=== PATIENT | male | born 1955 | race African-American/Black ===

== ENCOUNTER 2021-09-06 20:34 | Emergency (ER) | payer MEDICAID ==
[~2021-09-06] VITALS: Ht 177.8 cm; Wt 71.0 kg
[2021-09-06 23:06] LABS: BASOPHILS % 0.4 % (0.0-2.0); EOSINOPHILS % 2.4 % (0.0-5.0); HEMATOCRIT. 37.7 % (42.0-52.0); HEMOGLOBIN. 12.8 g/dL (14.0-18.0); LYMPHOCYTES % 30.9 % (20.0-50.0); MEAN CORPUSCULAR HEMOGLOBIN 33.3 pg (28.0-32.0); MEAN PLATELET VOLUME 8.1 fl (7.4-10.4); NEUTROPHILS % 54.3 % (40.0-76.0); PLATELET 231 x1000/uL (130-400); RED BLOOD CELL COUNT 3.84 mill/uL (4.7-6.1); RED CELL DISTRIBUTION WIDTH 13.3 % (11.6-14.6)
[2021-09-06 23:13] LABS: CHLORIDE 108 mEq/L (98-107)
[2021-09-06 23:26] LABS: ETHANOL BLOOD < 10 mg/dL
[2021-09-07] MEDS ORDERED: VISCOUS LIDOCAINE 2% 15 ML UDC MM STA (00:13)
[2021-09-07] MEDS ORDERED: ONDANSETRON HCL 4MG/2ML INJ IV ONE (00:15)
[2021-09-07] MEDS ORDERED: PANTOPRAZOLE SODIUM 40 MG/VIAL IV ONE (00:15)
[2021-09-07 03:16] LABS: CLARITY URINE CLEAR (CLEAR); COLOR URINE YELLOW (YELLOW); KETONES URINE TRACE (NEGATIVE); LEUKOCYTE ESTERASE URINE NEGATIVE (NEGATIVE); NITRITE URINE NEGATIVE (NEGATIVE); OCCULT BLOOD URINE NEGATIVE (NEGATIVE); PH URINE 5.5 (4.5-8.0); PROTEIN URINE TRACE (NEGATIVE); SPECIFIC GRAVITY URINE 1.026 (1.005-1.030)
[2021-09-07 04:49] LABS: *AMPHETAMINES SCREEN URINE NEGATIVE (NEGATIVE); *BARBITURATES SCREEN URINE NEGATIVE (NEGATIVE); *BENZODIAZEPINES SCREEN URINE NEGATIVE (NEGATIVE); *COCAINE SCREEN URINE PRESUMTIVE POSITIVE (NEGATIVE); CANNABINOID URINE SCREEN NEGATIVE (NEGATIVE); METHADONE URINE SCREEN NEGATIVE (NEGATIVE); OPIATES URINE SCREEN NEGATIVE (NEGATIVE); PHENCYCLIDINE URINE SCREEN NEGATIVE (NEGATIVE)
[2021-09-07] MEDS ORDERED: ACET-2708 MT (05:00)
[2021-09-07] MEDS ORDERED: ACETAMINOPHEN 500MG TABLET PO ONE (05:30)
[2021-09-07 08:55] VITALS: BP 135/80
[2021-09-07] MEDS ORDERED: GADOTERATE MEGLUMINE 5 MMOL/10 ML VIAL IV ONE (11:46)
== END 2021-09-07 09:33 | disposition home or self-care (01) ==
LOC: ER 20:34
DX: R20.0 Anesthesia of skin (principal); R53.1 Weakness; Z88.6 Allergy status to analgesic agent
CPT/HCPCS: 36415; 70450; 72156; 72157; 72158; 80053; 80305; 80320; 81003; 82962; 85025; 96374; 96375; 99285; A9577; C9113; J2405; G0480

== ENCOUNTER 2021-11-15 07:41 | Inpatient (IN) | payer MEDICARE, MEDICAID ==
[~2021-11-15] VITALS: Ht 30.5 cm; Wt 90.7 kg
[2021-11-15] VITALS (62 sets, daily range): BP systolic 112–185; BP diastolic 48–93
[~2021-11-15 07:41] MED LIST: ACET-2708 MT
[2021-11-15] MEDS ORDERED: LACTATED RINGERS 1,000 ML IV SCH (08:40)
[2021-11-15] MEDS ORDERED: GENTAMICIN SULF 40MG/ML 2ML VIAL ONE (10:16)
[2021-11-15] MEDS ORDERED: THROMBIN (BOVINE) 5000 UNITS/VIAL TOP ONE (10:16)
[2021-11-15] MEDS ORDERED: LIDOCAINE HCL/EPINEPHRINE 1%-EPI 1:100,000 20 ML VIAL ONE (10:16)
[2021-11-15 10:19] LABS: PROTHROMBIN TIME 11.2 sec (9.6-11.0)
[2021-11-15] MEDS ORDERED: ONDANSETRON HCL 4MG/2ML INJ ONE (10:27)
[2021-11-15] MEDS ORDERED: DEXAMETHASONE 4MG/ML 1ML VIAL ONE (10:27)
[2021-11-15] MEDS ORDERED: SUCCINYLCHOLINE CHLORIDE 200MG/10ML IV ONE (10:27)
[2021-11-15] MEDS ORDERED: LIDOCAINE HCL 1% 20ML VIAL (Pyxis) INJ ONE (10:27)
[2021-11-15] MEDS ORDERED: PROPOFOL 10MG/ML 100ML 100 ML IV ONE (10:27)
[2021-11-15] MEDS ORDERED: ETOMIDATE 2MG/ML 10ML VIAL IV ONE (10:27)
[2021-11-15] MEDS ORDERED: GLYCOPYRROLATE 0.2 MG/ML 2ML VIAL ONE ×2 (10:28)
[2021-11-15] MEDS ORDERED: ROCURONIUM BROMIDE 10MG/ML VIAL 5ML IV ONE (10:28)
[2021-11-15] MEDS ORDERED: FENTANYL CITRATE/PF 50MCG/ML 2ML VIAL ONE (10:28)
[2021-11-15] MEDS ORDERED: MIDAZOLAM HCL 2 MG/2 ML VIAL ONE (10:29)
[2021-11-15 11:18] LABS: *AMPHETAMINES SCREEN URINE NEGATIVE (NEGATIVE); *BARBITURATES SCREEN URINE NEGATIVE (NEGATIVE); *BENZODIAZEPINES SCREEN URINE NEGATIVE (NEGATIVE); *COCAINE SCREEN URINE NEGATIVE (NEGATIVE); CANNABINOID URINE SCREEN NEGATIVE (NEGATIVE); METHADONE URINE SCREEN NEGATIVE (NEGATIVE); OPIATES URINE SCREEN NEGATIVE (NEGATIVE); PHENCYCLIDINE URINE SCREEN NEGATIVE (NEGATIVE)
[2021-11-15] MEDS ORDERED: GABA-532 PO (11:55)
[2021-11-15] MEDS ORDERED: PREG50CA PO (11:55)
[2021-11-15] MEDS ORDERED: NICARDIPINE 100 MG in SODIUM CHLORIDE 0.9% 60 ML IV PRN (13:30)
[2021-11-15] MEDS: MORPHINE SULFATE 2 MG/ML CPJ (NOT FOR IM USE) IV PRN ×2 (13:56→21:08)
[2021-11-15] MEDS ORDERED: CEFAZOLIN SODIUM 1000MG/VIAL IV SCH (14:00)
[2021-11-15] MEDS: NICARDIPINE 100 MG in SODIUM CHLORIDE 0.9% 60 ML IV PRN ×2 (14:00→22:06)
[2021-11-15] MEDS: DEXT 5%/LACTATED RINGERS 1,000 ML IV SCH ×2 (14:01→23:42)
[2021-11-15] MEDS ORDERED: NALOXONE HCL 0.4MG/ML VIAL IV PRN (14:15)
[2021-11-15] MEDS: CEFAZOLIN 1000MG PREMIX 50 ML IV SCH ×2 (14:37→21:07)
[2021-11-15] MEDS ORDERED: LABETALOL 5MG/ML SYR 20 MG/4 ML SYRINGE IV PRN (16:00)
[2021-11-15] MEDS: HYDRALAZINE 20MG/ML VIAL IV PRN (17:29)
[2021-11-15] MEDS ORDERED: HYDROMORPHONE HCL/PF 2MG/ML CPJ IV NR ×2 (17:30→18:00)
[2021-11-15] MEDS: LABETALOL HCL 100 MG in DEXT 5% WATER 80 ML IV PRN (18:07)
[2021-11-15] MEDS: DEXAMETHASONE 4MG/ML 1ML VIAL IV SCH ×2 (19:57→23:41)
[2021-11-16] VITALS (97 sets, daily range): BP systolic 103–155; BP diastolic 48–104
[2021-11-16] MEDS: MORPHINE SULFATE 2 MG/ML CPJ (NOT FOR IM USE) IV PRN ×6 (00:37→21:06)
[2021-11-16] MEDS: HYDRALAZINE 20MG/ML VIAL IV PRN (01:01)
[2021-11-16] MEDS: LABETALOL HCL 100 MG in DEXT 5% WATER 80 ML IV PRN (01:15)
[2021-11-16] MEDS: DEXAMETHASONE 4MG/ML 1ML VIAL IV SCH ×4 (05:34→23:01)
[2021-11-16] MEDS: CEFAZOLIN 1000MG PREMIX 50 ML IV SCH ×3 (05:34→21:05)
[2021-11-16] MEDS ORDERED: LIDOCAINE HCL/PF 1% 10 MG/ML 5ML VIAL ONE (08:15)
[2021-11-16] MEDS: DEXT 5%/LACTATED RINGERS 1,000 ML IV SCH ×2 (09:42→14:15)
[2021-11-16] MEDS ORDERED: IPRATROPIUM/ALBUTEROL 0.5-3(2.5)MG/3ML NEB HHN PRN (10:15)
[2021-11-16] MEDS ORDERED: AMLODIPINE 5MG TABLET PO SCH (11:45)
[2021-11-16 11:47] LABS: HEMATOCRIT. 36.8 % (42.0-52.0); HEMOGLOBIN. 12.7 g/dL (14.0-18.0); MEAN CORPUSCULAR HEMOGLOBIN 33.8 pg (28.0-32.0); MEAN CORPUSCULAR VOLUME 97.6 fL (80.0-94.0); MEAN PLATELET VOLUME 7.6 fl (7.4-10.4); PLATELET 200 x1000/uL (130-400); RED BLOOD CELL COUNT 3.77 mill/uL (4.7-6.1)
[2021-11-16 11:53] LABS: CHLORIDE 106 mEq/L (98-107)
[2021-11-16] MEDS: AMLODIPINE 10MG TABLET PO SCH (12:03)
[2021-11-16 12:56] LABS: PLATELET ESTIMATE NORMAL
[2021-11-16] MEDS: NICARDIPINE 100 MG in SODIUM CHLORIDE 0.9% 60 ML IV PRN (14:05)
[2021-11-16] MEDS: HYDROCODONE/ACETAMINOPHEN 5/325MG TABLET PO PRN ×2 (17:19→23:04)
[2021-11-17] VITALS (31 sets, daily range): BP systolic 108–135; BP diastolic 44–93
[2021-11-17 05:42] LABS: HEMATOCRIT. 35.8 % (42.0-52.0); HEMOGLOBIN. 12.4 g/dL (14.0-18.0); MEAN CORPUSCULAR HEMOGLOBIN 33.8 pg (28.0-32.0); MEAN CORPUSCULAR VOLUME 97.6 fL (80.0-94.0); PLATELET 199 x1000/uL (130-400); RED BLOOD CELL COUNT 3.67 mill/uL (4.7-6.1); RED CELL DISTRIBUTION WIDTH 13.3 % (11.6-14.6)
[2021-11-17] MEDS: DEXAMETHASONE 4MG/ML 1ML VIAL IV SCH ×3 (05:57→18:16)
[2021-11-17] MEDS: CEFAZOLIN 1000MG PREMIX 50 ML IV SCH (05:57)
[2021-11-17] MEDS: DEXT 5%/LACTATED RINGERS 1,000 ML IV SCH ×2 (05:58→18:43)
[2021-11-17 06:01] LABS: CHLORIDE 104 mEq/L (98-107)
[2021-11-17 06:28] LABS: HDL CHOLESTEROL 92 mg/dL (40-59); LDL CHOLESTEROL 142 mg/dL (5-100)
[2021-11-17] MEDS: AMLODIPINE 10MG TABLET PO SCH (09:09)
[2021-11-17] MEDS: HYDROCODONE/ACETAMINOPHEN 5/325MG TABLET PO PRN ×3 (09:10→22:49)
[2021-11-17 16:44] LABS: PLATELET ESTIMATE NORMAL
[2021-11-18] VITALS: BP 124/68
[2021-11-18] MEDS: DEXT 5%/LACTATED RINGERS 1,000 ML IV SCH ×3 (01:11→21:57)
[2021-11-18] MEDS: AMLODIPINE 10MG TABLET PO SCH (10:35)
[2021-11-18 12:00] VITALS: BP 148/73
[2021-11-18 12:29] LABS: HEMATOCRIT. 34.4 % (42.0-52.0); MEAN CORPUSCULAR HEMOGLOBIN 33.7 pg (28.0-32.0); MEAN CORPUSCULAR VOLUME 96.9 fL (80.0-94.0); MEAN PLATELET VOLUME 8.3 fl (7.4-10.4); PLATELET 218 x1000/uL (130-400); RED BLOOD CELL COUNT 3.55 mill/uL (4.7-6.1); RED CELL DISTRIBUTION WIDTH 13.1 % (11.6-14.6)
[2021-11-18 12:42] LABS: CHLORIDE 105 mEq/L (98-107)
[2021-11-18] MEDS: HYDROCODONE/ACETAMINOPHEN 5/325MG TABLET PO PRN ×2 (14:32→21:55)
[2021-11-18] MEDS: POLYETHYLENE GLYCOL 3350 (17GM) 1 DOSE PACK PO SCH (15:30)
[2021-11-18] MEDS ORDERED: HYDRALAZINE 10 MG in SODIUM CHLORIDE 0.9% 49.5 ML IV PRN (15:45)
[2021-11-18 16:00] VITALS: BP 121/78
[2021-11-18] MEDS: DOCUSATE SODIUM 100MG CAPSULE PO SCH (17:00)
[2021-11-18 20:00] VITALS: BP 112/75
[2021-11-18 22:16] LABS: PLATELET ESTIMATE NORMAL
[2021-11-19] VITALS (7 sets, daily range): BP systolic 114–134; BP diastolic 78–84
[2021-11-19] MEDS: HYDROCODONE/ACETAMINOPHEN 5/325MG TABLET PO PRN ×3 (05:00→20:04)
[2021-11-19] MEDS: AMLODIPINE 10MG TABLET PO SCH (08:28)
[2021-11-19] MEDS: DOCUSATE SODIUM 100MG CAPSULE PO SCH ×2 (08:28→17:56)
[2021-11-19] MEDS: DEXT 5%/LACTATED RINGERS 1,000 ML IV SCH ×2 (08:29→18:00)
[2021-11-19] MEDS: POLYETHYLENE GLYCOL 3350 (17GM) 1 DOSE PACK PO SCH (08:29)
[2021-11-19] MEDS: MORPHINE SULFATE 4 MG/ML CPJ (NOT FOR IM USE) IV PRN ×2 (08:51→15:45)
[2021-11-19] MEDS ORDERED: BISACODYL 10MG SUPP PR NR (14:00)
== END 2021-11-19 23:40 | DRG 471 ==
LOC: OR 07:41 → MICUNO 13:53 → 6EST 11-17 16:05
PROVIDERS: ADMIT Neurological Surgery; ATTEND Neurological Surgery
PROC: 0RG2071 Fusion of 2 or more Cervical Vertebral Joints with Autologous Tissue Substitute, Posterior Approach, Posterior Column, Open Approach (ICD-10-PCS; principal; 2021-11-15)
PROC: 00NW0ZZ Release Cervical Spinal Cord, Open Approach (ICD-10-PCS; 2021-11-15)
PROC: 4A11X4G Monitoring of Peripheral Nervous Electrical Activity, Intraoperative, External Approach (ICD-10-PCS; 2021-11-15)
PROC: 02HV33Z Insertion of Infusion Device into Superior Vena Cava, Percutaneous Approach (ICD-10-PCS; 2021-11-16)
PROC: B548ZZA Ultrasonography of Superior Vena Cava, Guidance (ICD-10-PCS; 2021-11-16)
DX: M48.02 Spinal stenosis, cervical region (principal); G82.50 Quadriplegia, unspecified; J96.01 Acute respiratory failure with hypoxia; G99.2 Myelopathy in diseases classified elsewhere; Z20.822 Contact with and (suspected) exposure to COVID-19; I16.0 Hypertensive urgency; I10 Essential (primary) hypertension; M54.12 Radiculopathy, cervical region; D64.9 Anemia, unspecified; G62.9 Polyneuropathy, unspecified; R73.9 Hyperglycemia, unspecified; R26.89 Other abnormalities of gait and mobility; F14.10 Cocaine abuse, uncomplicated; Z88.8 Allergy status to other drugs, medicaments and biological substances; Z87.11 Personal history of peptic ulcer disease; Z86.16 Personal history of COVID-19; Z87.01 Personal history of pneumonia (recurrent)
CPT/HCPCS: 36415; 36573; 71045; 72040; 72141; 76000; 80048; 80053; 80061; 80305; 83036; 84443; 85025; 86850; 86900; 87426; 88304; 88311; 93005; 93306; 97110; 97116; 97162; 97166; 97530; 97535; C1713; C1725; C9803; J0330; J0360; J0690; J1100; J1170; J1580; J2250; J2270; J2405; J2704; J3010; J3490; J7050; J7060; J7121; L0172; L3908

== ENCOUNTER 2021-11-28 23:19 | Inpatient (IN) | payer MEDICARE, MEDICAID ==
[~2021-11-28] VITALS: Ht 182.9 cm; Wt 84.8 kg
[2021-11-28 22:30] VITALS: BP 132/81
[~2021-11-28 23:19] MED LIST changes: -ACET-2708 MT; +GABA-532 PO; +PREG50CA PO
[2021-11-29] VITALS (36 sets, daily range): BP systolic 97–138; BP diastolic 56–105
[2021-11-29] MEDS ORDERED: NALOXONE HCL 0.4MG/ML VIAL IV PRN (00:15)
[2021-11-29] MEDS: HYDROCODONE/ACETAMINOPHEN 10/325MG TABLET PO PRN ×2 (00:59→20:05)
[2021-11-29] MEDS ORDERED: NA PHOS,M-B/NA PHOS,DI-BA ENEMA 118ML PR PRN (02:45)
[2021-11-29] MEDS ORDERED: ONDANSETRON HCL 4MG TABLET PO PRN (02:45)
[2021-11-29] MEDS ORDERED: METHOCARBAMOL 500MG TABLET PO PRN (02:45)
[2021-11-29] MEDS: DEXT 5%/0.9% NACL 1,000 ML IV SCH ×2 (02:45→13:44)
[2021-11-29] MEDS ORDERED: IPRATROPIUM/ALBUTEROL 0.5-3(2.5)MG/3ML NEB HHN PRN (02:45)
[2021-11-29] MEDS ORDERED: ONDANSETRON HCL 4MG/2ML INJ IV PRN (02:45)
[2021-11-29] MEDS: GABAPENTIN 300MG CAPSULE PO SCH ×3 (06:00→22:16)
[2021-11-29] MEDS: SUCRALFATE 1 G/10 ML UDC PO SCH ×4 (07:20→20:04)
[2021-11-29] MEDS: METOCLOPRAMIDE HCL 10MG/2ML VIAL IV SCH ×4 (07:20→20:04)
[2021-11-29] MEDS ORDERED: POLYMYXIN B SULFATE 500000 UNITS/VIAL ONE (07:20)
[2021-11-29] MEDS: PANTOPRAZOLE 40MG DR TABLET PO SCH (07:20)
[2021-11-29] MEDS ORDERED: BUPIVACAINE HCL 0.5% (5MG/ML) 50ML ONE (07:21)
[2021-11-29] MEDS ORDERED: VANCOMYCIN HCL 1 GM/VIAL ONE (07:21)
[2021-11-29] MEDS ORDERED: LIDOCAINE 2%/EPINEPHRINE 1:200,000 20 ML VIAL INJ ONE (07:27)
[2021-11-29] MEDS ORDERED: THROMBIN (BOVINE) 5000 UNITS/VIAL TOP ONE (07:27)
[2021-11-29] MEDS ORDERED: GENTAMICIN SULF 40MG/ML 2ML VIAL ONE (07:27)
[2021-11-29] MEDS: FERROUS SULFATE 325MG TABLET PO SCH ×2 (07:50→12:50)
[2021-11-29] MEDS: AMLODIPINE 10MG TABLET PO SCH (08:58)
[2021-11-29] MEDS: ASCORBIC ACID 500 MG TABLET PO SCH (09:00)
[2021-11-29] MEDS: DEXAMETHASONE 4MG/ML 1ML VIAL IV SCH ×4 (09:05→23:48)
[2021-11-29] MEDS ORDERED: FENTANYL CITRATE/PF 50MCG/ML 2ML VIAL ONE (11:21)
[2021-11-29] MEDS ORDERED: PROPOFOL 200MG/20ML VIAL IV ONE (11:21)
[2021-11-29] MEDS ORDERED: CEFAZOLIN SODIUM 1000MG/VIAL ONE (11:23)
[2021-11-29] MEDS ORDERED: LIDOCAINE HCL 1% 10 MG/ML 10ML VIAL ONE (11:24)
[2021-11-29] MEDS ORDERED: ROCURONIUM BROMIDE 10MG/ML VIAL 5ML IV ONE (12:06)
[2021-11-29] MEDS ORDERED: NICARDIPINE 100 MG in SODIUM CHLORIDE 0.9% 60 ML IV PRN (14:15)
[2021-11-29] MEDS ORDERED: HYDROMORPHONE HCL/PF 2MG/ML CPJ IV PRN (15:45)
[2021-11-29] MEDS: DEXT 5%/LACTATED RINGERS 1,000 ML IV SCH (15:46)
[2021-11-29] MEDS: MORPHINE SULFATE 4 MG/ML CPJ (NOT FOR IM USE) IV PRN (15:48)
[2021-11-29] MEDS ORDERED: CEFAZOLIN SODIUM 1000MG/VIAL IV SCH (22:00)
[2021-11-29] MEDS: CEFAZOLIN 1000MG PREMIX 50 ML IV SCH (22:15)
[2021-11-30] VITALS (79 sets, daily range): BP systolic 96–156; BP diastolic 48–98
[2021-11-30] MEDS: HYDROCODONE/ACETAMINOPHEN 10/325MG TABLET PO PRN ×5 (00:24→22:27)
[2021-11-30] MEDS: DEXT 5%/LACTATED RINGERS 1,000 ML IV SCH ×2 (00:24→09:54)
[2021-11-30 06:05] LABS: HEMATOCRIT. 32.6 % (42.0-52.0); HEMOGLOBIN. 11.2 g/dL (14.0-18.0); MEAN CORPUSCULAR HEMOGLOBIN 33.5 pg (28.0-32.0); MEAN CORPUSCULAR VOLUME 97.3 fL (80.0-94.0); MEAN PLATELET VOLUME 7.4 fl (7.4-10.4); PLATELET 364 x1000/uL (130-400); RED BLOOD CELL COUNT 3.35 mill/uL (4.7-6.1); RED CELL DISTRIBUTION WIDTH 12.8 % (11.6-14.6)
[2021-11-30] MEDS: DEXAMETHASONE 4MG/ML 1ML VIAL IV SCH ×4 (06:14→23:25)
[2021-11-30] MEDS: CEFAZOLIN 1000MG PREMIX 50 ML IV SCH ×3 (06:14→21:37)
[2021-11-30] MEDS: SUCRALFATE 1 G/10 ML UDC PO SCH ×4 (06:14→20:43)
[2021-11-30] MEDS: GABAPENTIN 300MG CAPSULE PO SCH ×3 (06:14→21:00)
[2021-11-30] MEDS: METOCLOPRAMIDE HCL 10MG/2ML VIAL IV SCH ×4 (06:14→20:43)
[2021-11-30] MEDS: PANTOPRAZOLE 40MG DR TABLET PO SCH (06:15)
[2021-11-30] MEDS: FERROUS SULFATE 325MG TABLET PO SCH ×3 (06:15→18:12)
[2021-11-30 06:17] LABS: CHLORIDE 101 mEq/L (98-107)
[2021-11-30 07:48] LABS: PLATELET ESTIMATE NORMAL
[2021-11-30] MEDS: ASCORBIC ACID 500 MG TABLET PO SCH (09:00)
[2021-11-30 09:23] LABS: CLARITY URINE CLEAR (CLEAR); COLOR URINE YELLOW (YELLOW); KETONES URINE NEGATIVE (NEGATIVE); LEUKOCYTE ESTERASE URINE 1+ (NEGATIVE); NITRITE URINE NEGATIVE (NEGATIVE); OCCULT BLOOD URINE TRACE (NEGATIVE); PROTEIN URINE NEGATIVE (NEGATIVE); SPECIFIC GRAVITY URINE 1.018 (1.005-1.030); UROBILINOGEN URINE 0.2 E.U./dL (0.2-1.0)
[2021-11-30] MEDS: AMLODIPINE 10MG TABLET PO SCH (09:50)
[2021-12-01 00:33] VITALS: BP 140/84
[2021-12-01] MEDS: HYDROCODONE/ACETAMINOPHEN 10/325MG TABLET PO PRN ×3 (02:50→20:26)
[2021-12-01 04:00] VITALS: BP 118/75
[2021-12-01] MEDS: MORPHINE SULFATE 4 MG/ML CPJ (NOT FOR IM USE) IV PRN (05:26)
[2021-12-01] MEDS: SUCRALFATE 1 G/10 ML UDC PO SCH ×4 (06:29→20:26)
[2021-12-01] MEDS: CEFAZOLIN 1000MG PREMIX 50 ML IV SCH ×2 (06:29→14:01)
[2021-12-01] MEDS: GABAPENTIN 300MG CAPSULE PO SCH ×3 (06:29→21:02)
[2021-12-01] MEDS: DEXAMETHASONE 4MG/ML 1ML VIAL IV SCH ×2 (06:29→11:49)
[2021-12-01] MEDS: PANTOPRAZOLE 40MG DR TABLET PO SCH (06:29)
[2021-12-01] MEDS: METOCLOPRAMIDE HCL 10MG/2ML VIAL IV SCH ×4 (06:29→20:25)
[2021-12-01 07:20] LABS: HEMATOCRIT. 32.9 % (42.0-52.0); HEMOGLOBIN. 11.1 g/dL (14.0-18.0); MEAN CORPUSCULAR HEMOGLOBIN 33.2 pg (28.0-32.0); MEAN CORPUSCULAR VOLUME 98.2 fL (80.0-94.0); MEAN PLATELET VOLUME 7.2 fl (7.4-10.4); PLATELET 386 x1000/uL (130-400); RED BLOOD CELL COUNT 3.35 mill/uL (4.7-6.1); RED CELL DISTRIBUTION WIDTH 13.2 % (11.6-14.6)
[2021-12-01 07:30] LABS: CHLORIDE 101 mEq/L (98-107)
[2021-12-01] MEDS: FERROUS SULFATE 325MG TABLET PO SCH ×3 (11:48→17:58)
[2021-12-01] MEDS: ASCORBIC ACID 500 MG TABLET PO SCH (11:48)
[2021-12-01] MEDS: AMLODIPINE 10MG TABLET PO SCH (11:48)
[2021-12-01 14:42] LABS: PLATELET ESTIMATE NORMAL
[2021-12-01 20:00] VITALS: BP 104/56
[2021-12-02] VITALS: BP 118/78
[2021-12-02 04:00] VITALS: BP 138/85
[2021-12-02] MEDS: SUCRALFATE 1 G/10 ML UDC PO SCH ×3 (06:29→21:05)
[2021-12-02] MEDS: PANTOPRAZOLE 40MG DR TABLET PO SCH (06:29)
[2021-12-02] MEDS: METOCLOPRAMIDE HCL 10MG/2ML VIAL IV SCH ×3 (06:29→21:08)
[2021-12-02] MEDS: GABAPENTIN 300MG CAPSULE PO SCH ×3 (06:29→20:55)
[2021-12-02] MEDS: MORPHINE SULFATE 4 MG/ML CPJ (NOT FOR IM USE) IV PRN (06:30)
[2021-12-02 07:45] LABS: BASOPHILS % 0.1 % (0.0-2.0); EOSINOPHILS % 0.2 % (0.0-5.0); HEMATOCRIT. 31.6 % (42.0-52.0); HEMOGLOBIN. 10.9 g/dL (14.0-18.0); LYMPHOCYTES % 14.3 % (20.0-50.0); MEAN CORPUSCULAR HEMOGLOBIN 33.5 pg (28.0-32.0); MEAN CORPUSCULAR VOLUME 97.4 fL (80.0-94.0); MEAN PLATELET VOLUME 7.3 fl (7.4-10.4); MONOCYTES % 8.8 % (2.0-8.0); NEUTROPHILS % 76.6 % (40.0-76.0); PLATELET 365 x1000/uL (130-400); RED BLOOD CELL COUNT 3.24 mill/uL (4.7-6.1); RED CELL DISTRIBUTION WIDTH 13.2 % (11.6-14.6)
[2021-12-02 07:55] LABS: CHLORIDE 105 mEq/L (98-107)
[2021-12-02 08:00] VITALS: BP 118/75
[2021-12-02] MEDS: ASCORBIC ACID 500 MG TABLET PO SCH (10:01)
[2021-12-02] MEDS: FERROUS SULFATE 325MG TABLET PO SCH ×2 (10:01→12:13)
[2021-12-02] MEDS: HYDROCODONE/ACETAMINOPHEN 10/325MG TABLET PO PRN ×2 (10:02→20:56)
[2021-12-02] MEDS: AMLODIPINE 10MG TABLET PO SCH (10:02)
[2021-12-02 12:00] VITALS: BP 116/68
[2021-12-02] MEDS ORDERED: SENNOSIDES/DOCUSATE SOD 8.6/50MG TABLET PO SCH (13:00)
[2021-12-02 16:00] VITALS: BP 116/72
[2021-12-02 20:43] VITALS: BP 108/69
[2021-12-03 01:46] VITALS: BP 110/70
[2021-12-03 04:29] VITALS: BP 107/68
[2021-12-03] MEDS: MORPHINE SULFATE 4 MG/ML CPJ (NOT FOR IM USE) IV PRN (05:17)
[2021-12-03] MEDS: GABAPENTIN 300MG CAPSULE PO SCH ×3 (06:18→21:17)
[2021-12-03] MEDS: PANTOPRAZOLE 40MG DR TABLET PO SCH (06:18)
[2021-12-03] MEDS: SUCRALFATE 1 G/10 ML UDC PO SCH ×4 (06:18→21:17)
[2021-12-03] MEDS: METOCLOPRAMIDE HCL 10MG/2ML VIAL IV SCH ×4 (06:19→21:17)
[2021-12-03 07:36] LABS: BASOPHILS % 0.4 % (0.0-2.0); EOSINOPHILS % 1.9 % (0.0-5.0); HEMATOCRIT. 33.9 % (42.0-52.0); HEMOGLOBIN. 11.4 g/dL (14.0-18.0); LYMPHOCYTES % 25.6 % (20.0-50.0); MEAN CORPUSCULAR HEMOGLOBIN 33.3 pg (28.0-32.0); MEAN CORPUSCULAR VOLUME 99.3 fL (80.0-94.0); MEAN PLATELET VOLUME 7.2 fl (7.4-10.4); MONOCYTES % 10.8 % (2.0-8.0); NEUTROPHILS % 61.3 % (40.0-76.0); PLATELET 351 x1000/uL (130-400); RED BLOOD CELL COUNT 3.41 mill/uL (4.7-6.1); RED CELL DISTRIBUTION WIDTH 13.2 % (11.6-14.6)
[2021-12-03] MEDS: FERROUS SULFATE 325MG TABLET PO SCH ×4 (07:50→17:47)
[2021-12-03 07:55] LABS: CHLORIDE 106 mEq/L (98-107)
[2021-12-03 08:00] VITALS: BP 113/78
[2021-12-03 08:01] LABS: PHOSPHORUS 3.1 mg/dL (2.5-4.9)
[2021-12-03] MEDS: HYDROCODONE/ACETAMINOPHEN 10/325MG TABLET PO PRN ×3 (09:18→21:25)
[2021-12-03] MEDS: AMLODIPINE 10MG TABLET PO SCH (09:18)
[2021-12-03] MEDS: ASCORBIC ACID 500 MG TABLET PO SCH (09:19)
[2021-12-03] MEDS ORDERED: NA PHOS,M-B/NA PHOS,DI-BA ENEMA 118ML PR NR (10:30)
[2021-12-03 12:00] VITALS: BP 120/78
[2021-12-03 16:00] VITALS: BP 139/82
[2021-12-03 20:00] VITALS: BP 117/75
[2021-12-03] MEDS ORDERED: SENNOSIDES/DOCUSATE SOD 8.6/50MG TABLET PO PRN (21:00)
[2021-12-04] VITALS: BP 109/67
[2021-12-04 04:00] VITALS: BP 126/73
[2021-12-04] MEDS ORDERED: NALOXONE HCL 0.4MG/ML VIAL IV PRN (05:45)
[2021-12-04] MEDS: GABAPENTIN 300MG CAPSULE PO SCH ×2 (05:49→14:30)
[2021-12-04] MEDS: HYDROCODONE/ACETAMINOPHEN 10/325MG TABLET PO PRN ×2 (05:49→17:05)
[2021-12-04] MEDS: METOCLOPRAMIDE HCL 10MG/2ML VIAL IV SCH ×3 (05:50→17:35)
[2021-12-04] MEDS: SUCRALFATE 1 G/10 ML UDC PO SCH ×3 (05:50→17:35)
[2021-12-04] MEDS: PANTOPRAZOLE 40MG DR TABLET PO SCH (05:50)
[2021-12-04 06:54] LABS: BASOPHILS % 0.4 % (0.0-2.0); CHLORIDE 104 mEq/L (98-107); EOSINOPHILS % 2.6 % (0.0-5.0); HEMATOCRIT. 32.7 % (42.0-52.0); LYMPHOCYTES % 17.5 % (20.0-50.0); MEAN CORPUSCULAR HEMOGLOBIN 33.4 pg (28.0-32.0); MEAN CORPUSCULAR VOLUME 99.6 fL (80.0-94.0); MEAN PLATELET VOLUME 7.2 fl (7.4-10.4); MONOCYTES % 10.7 % (2.0-8.0); NEUTROPHILS % 68.8 % (40.0-76.0); PLATELET 353 x1000/uL (130-400); RED BLOOD CELL COUNT 3.29 mill/uL (4.7-6.1); RED CELL DISTRIBUTION WIDTH 13.3 % (11.6-14.6)
[2021-12-04 08:00] VITALS: BP 103/69
[2021-12-04] MEDS: ASCORBIC ACID 500 MG TABLET PO SCH (09:35)
[2021-12-04] MEDS: FERROUS SULFATE 325MG TABLET PO SCH ×3 (09:35→17:35)
[2021-12-04] MEDS: AMLODIPINE 10MG TABLET PO SCH (09:36)
[2021-12-04 12:00] VITALS: BP 109/71
[2021-12-04 16:00] VITALS: BP 112/72
[2021-12-04 17:59] VITALS: BP 113/75
[2021-12-05] MEDS ORDERED: ERGOCALCIFEROL 50000UNITS CAPSULE PO SCH (09:00)
== END 2021-12-04 19:43 | DRG 907 ==
LOC: 6EST 23:19 → MICUSO 11-29 16:56 → 6EST 11-30 19:20
PROVIDERS: ADMIT Physical Medicine & Rehabilitation Spinal Cord Injury Medicine; ATTEND Internal Medicine
PROC: 009U00Z Drainage of Spinal Canal with Drainage Device, Open Approach (ICD-10-PCS; principal; 2021-11-29)
DX: G97.51 Postprocedural hemorrhage of a nervous system organ or structure following a nervous system procedure (principal); E43 Unspecified severe protein-calorie malnutrition; G82.50 Quadriplegia, unspecified; K22.11 Ulcer of esophagus with bleeding; E87.1 Hypo-osmolality and hyponatremia; Y83.9 Surgical procedure, unspecified as the cause of abnormal reaction of the patient, or of later complication, without mention of misadventure at the time of the procedure; I10 Essential (primary) hypertension; Y92.89 Other specified places as the place of occurrence of the external cause; D64.9 Anemia, unspecified; D72.829 Elevated white blood cell count, unspecified; E55.9 Vitamin D deficiency, unspecified; E87.6 Hypokalemia; F14.10 Cocaine abuse, uncomplicated; R26.9 Unspecified abnormalities of gait and mobility; R73.9 Hyperglycemia, unspecified; Z20.822 Contact with and (suspected) exposure to COVID-19; R53.81 Other malaise; M50.10 Cervical disc disorder with radiculopathy, unspecified cervical region; Z86.16 Personal history of COVID-19; Z87.01 Personal history of pneumonia (recurrent); Z87.11 Personal history of peptic ulcer disease; Z87.19 Personal history of other diseases of the digestive system; Z79.899 Other long term (current) drug therapy; Z68.25 Body mass index [BMI] 25.0-25.9, adult
CPT/HCPCS: 36415; 72141; 80048; 81003; 83735; 84100; 85025; 86850; 86900; 87070; 87075; 87426; 88305; 92610; 93970; 97110; 97112; 97116; 97162; 97166; 97535; J0690; J1100; J1580; J2270; J2704; J2765; J3010; J3370; J3490; J7042; J7121

== ENCOUNTER 2021-12-04 19:33 | Inpatient (IN) | payer MEDICARE, MEDICAID ==
[~2021-12-04] VITALS: Ht 182.9 cm; Wt 83.9 kg
[2021-12-04 19:40] VITALS: BP 106/59
[2021-12-04 20:00] VITALS: BP 106/59
[2021-12-04] MEDS ORDERED: NA PHOS,M-B/NA PHOS,DI-BA ENEMA 118ML PR PRN (20:30)
[2021-12-04] MEDS ORDERED: ONDANSETRON HCL 4MG TABLET PO PRN (20:30)
[2021-12-04] MEDS ORDERED: SENNOSIDES/DOCUSATE SOD 8.6/50MG TABLET PO PRN (20:30)
[2021-12-04] MEDS ORDERED: NALOXONE HCL 0.4 MG/ML 1ML VIAL IV PRN (20:30)
[2021-12-04] MEDS ORDERED: IPRATROPIUM/ALBUTEROL 0.5-3(2.5)MG/3ML NEB HHN PRN (20:30)
[2021-12-04] MEDS ORDERED: ONDANSETRON HCL 4MG/2ML INJ IV PRN (20:30)
[2021-12-04] MEDS ORDERED: METOCLOPRAMIDE HCL 10MG TABLET PO SCH (21:00)
[2021-12-04] MEDS: METOCLOPRAMIDE HCL 10MG/2ML VIAL IV SCH (21:16)
[2021-12-04] MEDS: SUCRALFATE 1 G/10 ML UDC PO SCH (21:16)
[2021-12-04] MEDS: GABAPENTIN 300MG CAPSULE PO SCH (21:16)
[2021-12-04] MEDS: HYDROCODONE/ACETAMINOPHEN 10/325MG TABLET PO PRN (22:10)
[2021-12-05] MEDS: METOCLOPRAMIDE HCL 10MG/2ML VIAL IV SCH ×4 (06:03→20:45)
[2021-12-05] MEDS: PANTOPRAZOLE 40MG DR TABLET PO SCH (06:03)
[2021-12-05] MEDS: GABAPENTIN 300MG CAPSULE PO SCH ×3 (06:03→20:45)
[2021-12-05] MEDS: SUCRALFATE 1 G/10 ML UDC PO SCH ×4 (06:03→20:44)
[2021-12-05 06:11] LABS: CHLORIDE 104 mEq/L (98-107)
[2021-12-05 06:13] LABS: BASOPHILS % 0.5 % (0.0-2.0); EOSINOPHILS % 2.3 % (0.0-5.0); HEMATOCRIT. 29.6 % (42.0-52.0); HEMOGLOBIN. 10.2 g/dL (14.0-18.0); LYMPHOCYTES % 18.9 % (20.0-50.0); MEAN CORPUSCULAR VOLUME 98.9 fL (80.0-94.0); MEAN PLATELET VOLUME 7.4 fl (7.4-10.4); MONOCYTES % 8.7 % (2.0-8.0); NEUTROPHILS % 69.6 % (40.0-76.0); PLATELET 334 x1000/uL (130-400); RED CELL DISTRIBUTION WIDTH 13.4 % (11.6-14.6)
[2021-12-05 08:00] VITALS: BP 127/79
[2021-12-05] MEDS: ASCORBIC ACID 500 MG TABLET PO SCH (09:32)
[2021-12-05] MEDS: AMLODIPINE 10MG TABLET PO SCH (09:33)
[2021-12-05] MEDS: HYDROCODONE/ACETAMINOPHEN 10/325MG TABLET PO PRN ×2 (09:33→13:55)
[2021-12-05] MEDS: FERROUS SULFATE 325MG TABLET PO SCH ×3 (09:33→17:40)
[2021-12-05] MEDS: ERGOCALCIFEROL 50000UNITS CAPSULE PO SCH (09:34)
[2021-12-05] MEDS: METHOCARBAMOL 500MG TABLET PO PRN (12:44)
[2021-12-05 20:00] VITALS: BP 109/61
[2021-12-06] MEDS: HYDROCODONE/ACETAMINOPHEN 10/325MG TABLET PO PRN ×3 (00:50→20:30)
[2021-12-06] MEDS: PANTOPRAZOLE 40MG DR TABLET PO SCH (05:45)
[2021-12-06] MEDS: GABAPENTIN 300MG CAPSULE PO SCH ×3 (05:45→22:17)
[2021-12-06] MEDS: METOCLOPRAMIDE HCL 10MG/2ML VIAL IV SCH ×2 (05:45→11:04)
[2021-12-06] MEDS: SUCRALFATE 1 G/10 ML UDC PO SCH ×4 (05:45→21:00)
[2021-12-06 06:19] LABS: BASOPHILS % 0.3 % (0.0-2.0); EOSINOPHILS % 2.9 % (0.0-5.0); HEMATOCRIT. 30.9 % (42.0-52.0); HEMOGLOBIN. 10.5 g/dL (14.0-18.0); LYMPHOCYTES % 18.2 % (20.0-50.0); MEAN CORPUSCULAR HEMOGLOBIN 33.7 pg (28.0-32.0); MEAN CORPUSCULAR VOLUME 99.3 fL (80.0-94.0); MEAN PLATELET VOLUME 7.4 fl (7.4-10.4); MONOCYTES % 9.3 % (2.0-8.0); NEUTROPHILS % 69.3 % (40.0-76.0); PLATELET 350 x1000/uL (130-400); RED BLOOD CELL COUNT 3.11 mill/uL (4.7-6.1); RED CELL DISTRIBUTION WIDTH 13.5 % (11.6-14.6)
[2021-12-06 07:01] LABS: CHLORIDE 105 mEq/L (98-107)
[2021-12-06 08:00] VITALS: BP 104/70
[2021-12-06] MEDS: FERROUS SULFATE 325MG TABLET PO SCH ×3 (08:43→16:36)
[2021-12-06] MEDS: ASCORBIC ACID 500 MG TABLET PO SCH (08:43)
[2021-12-06] MEDS: AMLODIPINE 10MG TABLET PO SCH (08:44)
[2021-12-06 19:54] VITALS: BP 125/77
[2021-12-06] MEDS: METHOCARBAMOL 500MG TABLET PO PRN (20:30)
[2021-12-07] MEDS: SUCRALFATE 1 G/10 ML UDC PO SCH ×4 (05:50→20:49)
[2021-12-07] MEDS: PANTOPRAZOLE 40MG DR TABLET PO SCH (05:50)
[2021-12-07] MEDS: GABAPENTIN 300MG CAPSULE PO SCH ×3 (05:50→20:49)
[2021-12-07 08:00] VITALS: BP 124/82
[2021-12-07] MEDS: FERROUS SULFATE 325MG TABLET PO SCH ×3 (09:08→16:25)
[2021-12-07] MEDS: ASCORBIC ACID 500 MG TABLET PO SCH (09:09)
[2021-12-07] MEDS: AMLODIPINE 10MG TABLET PO SCH (09:10)
[2021-12-07] MEDS: HYDROCODONE/ACETAMINOPHEN 10/325MG TABLET PO PRN ×2 (13:16→22:50)
[2021-12-07] MEDS ORDERED: ONDANSETRON HCL 4MG TABLET PO PRN (15:15)
[2021-12-07 20:19] VITALS: BP 139/91
[2021-12-08] MEDS: PANTOPRAZOLE 40MG DR TABLET PO SCH (05:46)
[2021-12-08] MEDS: GABAPENTIN 300MG CAPSULE PO SCH ×3 (05:46→20:44)
[2021-12-08] MEDS: SUCRALFATE 1 G/10 ML UDC PO SCH ×4 (05:46→20:43)
[2021-12-08 06:27] LABS: CHLORIDE 106 mEq/L (98-107)
[2021-12-08 06:30] LABS: BASOPHILS % 0.4 % (0.0-2.0); EOSINOPHILS % 3.6 % (0.0-5.0); HEMATOCRIT. 29.9 % (42.0-52.0); HEMOGLOBIN. 10.3 g/dL (14.0-18.0); LYMPHOCYTES % 16.5 % (20.0-50.0); MEAN CORPUSCULAR HEMOGLOBIN 34.1 pg (28.0-32.0); MEAN CORPUSCULAR VOLUME 99.1 fL (80.0-94.0); MEAN PLATELET VOLUME 7.4 fl (7.4-10.4); MONOCYTES % 13.4 % (2.0-8.0); NEUTROPHILS % 66.1 % (40.0-76.0); PLATELET 345 x1000/uL (130-400); RED BLOOD CELL COUNT 3.01 mill/uL (4.7-6.1); RED CELL DISTRIBUTION WIDTH 13.5 % (11.6-14.6)
[2021-12-08 08:00] VITALS: BP 103/67
[2021-12-08] MEDS: AMLODIPINE 10MG TABLET PO SCH (09:00)
[2021-12-08] MEDS: FERROUS SULFATE 325MG TABLET PO SCH ×3 (10:10→17:06)
[2021-12-08] MEDS: ASCORBIC ACID 500 MG TABLET PO SCH (10:10)
[2021-12-08] MEDS: HYDROCODONE/ACETAMINOPHEN 10/325MG TABLET PO PRN (17:12)
[2021-12-08 20:00] VITALS: BP 103/64
[2021-12-09] MEDS: HYDROCODONE/ACETAMINOPHEN 10/325MG TABLET PO PRN ×2 (01:16→18:38)
[2021-12-09] MEDS: GABAPENTIN 300MG CAPSULE PO SCH ×3 (05:56→20:20)
[2021-12-09] MEDS: PANTOPRAZOLE 40MG DR TABLET PO SCH (05:56)
[2021-12-09] MEDS: SUCRALFATE 1 G/10 ML UDC PO SCH ×4 (05:56→20:19)
[2021-12-09 06:22] LABS: CHLORIDE 106 mEq/L (98-107)
[2021-12-09 06:37] LABS: BASOPHILS % 0.5 % (0.0-2.0); EOSINOPHILS % 3.6 % (0.0-5.0); HEMOGLOBIN. 10.2 g/dL (14.0-18.0); LYMPHOCYTES % 16.8 % (20.0-50.0); MEAN CORPUSCULAR HEMOGLOBIN 33.6 pg (28.0-32.0); MEAN CORPUSCULAR VOLUME 99.1 fL (80.0-94.0); MEAN PLATELET VOLUME 7.4 fl (7.4-10.4); MONOCYTES % 12.3 % (2.0-8.0); NEUTROPHILS % 66.8 % (40.0-76.0); PLATELET 328 x1000/uL (130-400); RED BLOOD CELL COUNT 3.03 mill/uL (4.7-6.1); RED CELL DISTRIBUTION WIDTH 13.4 % (11.6-14.6)
[2021-12-09 08:00] VITALS: BP 119/84
[2021-12-09] MEDS: FERROUS SULFATE 325MG TABLET PO SCH ×3 (09:42→16:03)
[2021-12-09] MEDS: ASCORBIC ACID 500 MG TABLET PO SCH (09:42)
[2021-12-09] MEDS: AMLODIPINE 10MG TABLET PO SCH (09:44)
[2021-12-09] MEDS ORDERED: CYANOCOBALAMIN 1000MCG/ML VIAL IM NR (12:30)
[2021-12-09 20:00] VITALS: BP 100/63
[2021-12-10] MEDS: HYDROCODONE/ACETAMINOPHEN 10/325MG TABLET PO PRN ×2 (02:26→21:08)
[2021-12-10] MEDS: SUCRALFATE 1 G/10 ML UDC PO SCH ×4 (06:14→21:09)
[2021-12-10] MEDS: GABAPENTIN 300MG CAPSULE PO SCH ×3 (06:14→21:09)
[2021-12-10] MEDS: PANTOPRAZOLE 40MG DR TABLET PO SCH (06:14)
[2021-12-10 08:00] VITALS: BP 116/79
[2021-12-10] MEDS: ASCORBIC ACID 500 MG TABLET PO SCH (08:58)
[2021-12-10] MEDS: FERROUS SULFATE 325MG TABLET PO SCH ×3 (08:58→16:05)
[2021-12-10] MEDS: AMLODIPINE 10MG TABLET PO SCH (09:00)
[2021-12-10 19:56] VITALS: BP 136/78
[2021-12-11 05:47] LABS: CHLORIDE 106 mEq/L (98-107)
[2021-12-11 05:56] LABS: BASOPHILS % 0.4 % (0.0-2.0); EOSINOPHILS % 2.3 % (0.0-5.0); HEMATOCRIT. 31.6 % (42.0-52.0); HEMOGLOBIN. 10.7 g/dL (14.0-18.0); LYMPHOCYTES % 18.6 % (20.0-50.0); MEAN CORPUSCULAR HEMOGLOBIN 33.5 pg (28.0-32.0); MEAN CORPUSCULAR VOLUME 99.1 fL (80.0-94.0); MEAN PLATELET VOLUME 7.5 fl (7.4-10.4); MONOCYTES % 11.6 % (2.0-8.0); NEUTROPHILS % 67.1 % (40.0-76.0); PLATELET 357 x1000/uL (130-400); RED BLOOD CELL COUNT 3.19 mill/uL (4.7-6.1); RED CELL DISTRIBUTION WIDTH 13.6 % (11.6-14.6)
[2021-12-11] MEDS: SUCRALFATE 1 G/10 ML UDC PO SCH ×4 (06:03→21:43)
[2021-12-11] MEDS: GABAPENTIN 300MG CAPSULE PO SCH ×3 (06:04→21:43)
[2021-12-11] MEDS: PANTOPRAZOLE 40MG DR TABLET PO SCH (06:04)
[2021-12-11] MEDS: HYDROCODONE/ACETAMINOPHEN 10/325MG TABLET PO PRN ×3 (06:17→23:16)
[2021-12-11 08:00] VITALS: BP 104/73
[2021-12-11] MEDS: AMLODIPINE 10MG TABLET PO SCH (09:00)
[2021-12-11] MEDS: ASCORBIC ACID 500 MG TABLET PO SCH (09:06)
[2021-12-11] MEDS: FERROUS SULFATE 325MG TABLET PO SCH ×3 (09:06→16:18)
[2021-12-11 20:00] VITALS: BP 110/71
[2021-12-12] MEDS: PANTOPRAZOLE 40MG DR TABLET PO SCH (06:32)
[2021-12-12] MEDS: GABAPENTIN 300MG CAPSULE PO SCH ×3 (06:32→20:36)
[2021-12-12] MEDS: SUCRALFATE 1 G/10 ML UDC PO SCH ×4 (06:32→20:36)
[2021-12-12 08:00] VITALS: BP 115/82
[2021-12-12] MEDS: ASCORBIC ACID 500 MG TABLET PO SCH (08:58)
[2021-12-12] MEDS: AMLODIPINE 10MG TABLET PO SCH (08:58)
[2021-12-12] MEDS: ERGOCALCIFEROL 50000UNITS CAPSULE PO SCH (08:58)
[2021-12-12] MEDS: FERROUS SULFATE 325MG TABLET PO SCH ×3 (08:58→16:40)
[2021-12-12] MEDS: HYDROCODONE/ACETAMINOPHEN 10/325MG TABLET PO PRN ×2 (09:00→23:56)
[2021-12-12 19:59] VITALS: BP 111/70
[2021-12-13] MEDS: PANTOPRAZOLE 40MG DR TABLET PO SCH (05:58)
[2021-12-13] MEDS: GABAPENTIN 300MG CAPSULE PO SCH ×3 (05:58→20:45)
[2021-12-13] MEDS: SUCRALFATE 1 G/10 ML UDC PO SCH ×4 (05:58→20:45)
[2021-12-13 06:39] LABS: BASOPHILS % 0.4 % (0.0-2.0); HEMATOCRIT. 30.5 % (42.0-52.0); HEMOGLOBIN. 10.4 g/dL (14.0-18.0); LYMPHOCYTES % 18.1 % (20.0-50.0); MEAN CORPUSCULAR HEMOGLOBIN 33.6 pg (28.0-32.0); MEAN CORPUSCULAR VOLUME 98.5 fL (80.0-94.0); MEAN PLATELET VOLUME 7.4 fl (7.4-10.4); MONOCYTES % 11.3 % (2.0-8.0); NEUTROPHILS % 67.2 % (40.0-76.0); PLATELET 327 x1000/uL (130-400); RED BLOOD CELL COUNT 3.09 mill/uL (4.7-6.1); RED CELL DISTRIBUTION WIDTH 13.2 % (11.6-14.6)
[2021-12-13 07:57] VITALS: BP 110/72
[2021-12-13 08:39] LABS: CHLORIDE 108 mEq/L (98-107)
[2021-12-13] MEDS: ASCORBIC ACID 500 MG TABLET PO SCH (08:57)
[2021-12-13] MEDS: AMLODIPINE 10MG TABLET PO SCH (08:57)
[2021-12-13] MEDS: FERROUS SULFATE 325MG TABLET PO SCH ×3 (08:57→16:30)
[2021-12-13] MEDS: HYDROCODONE/ACETAMINOPHEN 10/325MG TABLET PO PRN (16:29)
[2021-12-13 19:35] VITALS: BP 107/63
[2021-12-14] MEDS: HYDROCODONE/ACETAMINOPHEN 10/325MG TABLET PO PRN ×2 (01:13→13:57)
[2021-12-14] MEDS: GABAPENTIN 300MG CAPSULE PO SCH ×2 (06:14→13:09)
[2021-12-14] MEDS: SUCRALFATE 1 G/10 ML UDC PO SCH ×2 (06:14→11:46)
[2021-12-14 08:00] VITALS: BP 106/70
[2021-12-14] MEDS: FERROUS SULFATE 325MG TABLET PO SCH ×2 (08:16→13:00)
[2021-12-14] MEDS: ASCORBIC ACID 500 MG TABLET PO SCH (08:16)
[2021-12-14] MEDS: AMLODIPINE 10MG TABLET PO SCH (08:18)
[2021-12-14] MEDS ORDERED: PANT40TA51 PO (09:11)
[2021-12-14] MEDS ORDERED: SUCR1ORA15 PO (09:11)
[2021-12-14] MEDS ORDERED: CHOL125C6 PO (09:11)
[2021-12-14] MEDS ORDERED: FERR-63 PO (09:11)
[2021-12-14] MEDS ORDERED: ASCO500T20 PO (09:11)
[2021-12-14] MEDS ORDERED: GABA-532 PO (09:11)
[2021-12-14] MEDS ORDERED: AMLO10TA80 PO (09:11)
[2021-12-14] MEDS ORDERED: HYDR-4001 MT (09:13)
[2021-12-14 11:15] VITALS: BP 106/70
[2021-12-14 13:57] VITALS: BP 126/63
== END 2021-12-14 15:30 | disposition home health service (06) | DRG 551 ==
PROVIDERS: ADMIT Physical Medicine & Rehabilitation Spinal Cord Injury Medicine; ATTEND Internal Medicine
DX: M48.02 Spinal stenosis, cervical region (principal); E43 Unspecified severe protein-calorie malnutrition; G82.50 Quadriplegia, unspecified; K22.11 Ulcer of esophagus with bleeding; E87.1 Hypo-osmolality and hyponatremia; G95.20 Unspecified cord compression; G97.63 Postprocedural seroma of a nervous system organ or structure following a nervous system procedure; D64.9 Anemia, unspecified; D72.829 Elevated white blood cell count, unspecified; E55.9 Vitamin D deficiency, unspecified; E87.6 Hypokalemia; F14.10 Cocaine abuse, uncomplicated; K29.60 Other gastritis without bleeding; Y83.8 Other surgical procedures as the cause of abnormal reaction of the patient, or of later complication, without mention of misadventure at the time of the procedure; R13.10 Dysphagia, unspecified; R26.9 Unspecified abnormalities of gait and mobility; R53.81 Other malaise; I10 Essential (primary) hypertension; M50.10 Cervical disc disorder with radiculopathy, unspecified cervical region; K44.9 Diaphragmatic hernia without obstruction or gangrene; Z82.49 Family history of ischemic heart disease and other diseases of the circulatory system; Z86.16 Personal history of COVID-19; Z87.01 Personal history of pneumonia (recurrent); Z87.11 Personal history of peptic ulcer disease; Z87.19 Personal history of other diseases of the digestive system; Y92.89 Other specified places as the place of occurrence of the external cause; Z68.25 Body mass index [BMI] 25.0-25.9, adult
CPT/HCPCS: 36415; 80048; 80053; 84134; 85025; 92523; 92610; 93970; 97110; 97112; 97116; 97162; 97166; 97530; 97535; J2765; J3420; J8597; L0172